=== PATIENT | male | born 1990 | race Caucasian/White ===

== ENCOUNTER 2017-11-28 12:18 | Emergency (ER) | payer OTHER ==
[2017-11-28 12:53] VITALS: RESP 18; TEMP 97.9
[2017-11-28] MEDS ORDERED: KETOROLAC 30 MG/ML 1 ML VIAL IM STA (13:03)
[2017-11-28] MEDS ORDERED: ORPHENADRINE 30 MG/ML 2 ML VIAL IM STA (13:03)
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
[2017-11-28 13:47] VITALS: BP 122/68; PULSE 62
== END 2017-11-28 13:45 | disposition home or self-care (01) ==
LOC: EC 12:18
DX: S16.1XXA Strain of muscle, fascia and tendon at neck level, initial encounter (principal); R40.2412 Glasgow coma scale score 13-15, at arrival to emergency department; Z53.29 Procedure and treatment not carried out because of patient's decision for other reasons; Y92.410 Unspecified street and highway as the place of occurrence of the external cause; V43.92XA Unspecified car occupant injured in collision with other type car in traffic accident, initial encounter
CPT/HCPCS: 72050; 99283; 96372 ×2; J2360; J1885

== ENCOUNTER 2020-11-21 19:52 | Emergency (ER) | payer OTHER ==
[2020-11-21 19:59] VITALS: RESP 16
[2020-11-21] MEDS ORDERED: KETOROLAC 15 MG/ML 1 ML VIAL IM STA (20:06)
[2020-11-21] MEDS ORDERED: ACETAMINOPHEN TAB 500 MG TAB PO STA (20:06)
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
--- NOTE | 2020-11-21 21:12 | XR ---
EXAMINATION TYPE: XR knee complete RT DATE OF EXAM: 11/21/2020 COMPARISON: NONE HISTORY: Pain TECHNIQUE: 3 views FINDINGS: I see no fracture nor dislocation. Joint spaces are normal. There is no sign of knee joint effusion. IMPRESSION: Negative right knee exam. No fracture.
[2020-11-21 21:54] VITALS: BP 116/77; PULSE 87; TEMP 98
== END 2020-11-21 21:53 | disposition home or self-care (01) ==
LOC: EC 19:52 → SUPCPDRO 19:52 → EC 21:53
DX: S83.91XA Sprain of unspecified site of right knee, initial encounter (principal); V09.9XXA Pedestrian injured in unspecified transport accident, initial encounter; Y93.02 Activity, running; Y92.480 Sidewalk as the place of occurrence of the external cause
CPT/HCPCS: 96372; 99284

== ENCOUNTER 2023-02-14 05:49 | Inpatient (IN) | payer OTHER ==
[2023-02-14] MEDS ORDERED: MORPHINE SULFATE 4 MG/ML SYRINGE IV STA (06:30)
--- NOTE | 2023-02-14 06:57 | XR ---
EXAMINATION TYPE: XR chest 2V DATE OF EXAM: 02/14/2023 COMPARISON: NONE HISTORY: Chest pain. TECHNIQUE: Frontal and lateral views of the chest are obtained. FINDINGS: There is no focal air space opacity, pleural effusion, or pneumothorax seen. The cardiac silhouette size is within normal limits. The osseous structures are intact. IMPRESSION: No acute cardiopulmonary process.
--- NOTE | 2023-02-14 07:21 | ED ---
Chest Pain HPI - General Chief Complaint: Chest Pain Stated Complaint: Chest pain, SOB Time Seen by Provider: 02/14/23 06:30 Source: patient Mode of arrival: ambulatory Limitations: no limitations - History of Present Illness Initial Comments: Patient is a 32-year-old male presents to the emergency room with complaints of chest pain which she awoke with this morning. He reports that he was discharged from [facility] on 02/13/2023 after a 48 hour stay for chest pain and which he workup diagnosed him with pulmonary emboli and DVT. He states in addition to his CAT scan and Doppler he also had an echocardiogram completed. He was placed on oral blood thinners which he believes is Eliquis and discharged home for follow-up in 3 months. He was not referred to any local specialists. He reports a family history of multiple persons with pulmonary emboli's and DVTs; he denies any recent trauma or surgery or other inciting event for DVT/PE. Prior to his recent diagnosis of PE and DVT has no significant past medical history and was not taking any medications on a regular basis. - Related Data Previous Rx's Medication Instructions Recorded Cyclobenzaprine [Flexeril] 5 mg PO TID #12 tablet 11/28/17 Ibuprofen [Motrin] 600 mg PO Q6H PRN #20 tab 11/28/17 Ibuprofen 600 mg PO Q6H #28 tab 11/21/20 Allergies Allergy/AdvReac Type Severity Reaction Status Date / Time No Known Allergies Allergy Verified 02/14/23 05:57 Review of Systems ROS Statement: Those systems with pertinent positive or pertinent negative responses have been documented in the HPI. ROS Other: All systems not noted in ROS Statement are negative. Past Medical History Past Medical History: Deep Vein Thrombosis (DVT), Pulmonary Embolus (PE) History of Any Multi-Drug Resistant Organisms: None Reported Past Surgical History: No Surgical Hx Reported Past Psychological History: No Psychological Hx Reported Smoking Status: Never smoker Past Alcohol Use History: Rare Past Drug Use History: None Reported General Exam Limitations: no limitations General appearance: alert, in no apparent distress Head exam: Present: atraumatic, normocephalic, normal inspection Eye exam: Present: normal appearance, PERRL, EOMI. Absent: scleral icterus, conjunctival injection, periorbital swelling ENT exam: Present: normal exam, mucous membranes moist Neck exam: Present: normal inspection, full ROM Respiratory exam: Present: normal lung sounds bilaterally. Absent: respiratory distress, wheezes, rales, rhonchi, stridor Cardiovascular Exam: Present: regular rate, normal rhythm, normal heart sounds. Absent: systolic murmur, diastolic murmur, rubs, gallop, clicks GI/Abdominal exam: Present: soft, normal bowel sounds. Absent: distended, tenderness, guarding, rebound, rigid Rectal exam: Present: deferred Extremities exam: Present: normal inspection. Absent: pedal edema, joint swelling Back exam: Present: normal inspection Neurological exam: Present: alert, oriented X3, CN II-XII intact Psychiatric exam: Present: normal affect, normal mood Skin exam: Present: warm, dry, intact, normal color. Absent: rash Course Vital Signs 02/14/23 05:55 Temperature 97.8 F Pulse Rate 90 Respiratory 18 Rate Blood Pressure 119/76 O2 Sat by Pulse 96 Oximetry Chest Pain MDM - MDM Was pt. sent in by a medical professional or institution (, PA, PROGRAM DEVELOPMENT SPECIALIST, urgent care, hospital, or correction...) When possible be specific @ -No Did you speak to anyone other than the patient for history (EMS, parent, family, police, friend...)? What history was obtained from this source @ -No Did you review nursing and triage notes (agree or disagree)? Why? @ -I reviewed and agree with nursing and triage notes Were old charts reviewed (outside hosp., previous admission, EMS record, old EKG, old radiological studies, urgent care reports/EKG's, correction records)? Report findings @ -Attempting to obtain records from [facility] from previous hospitalization 02/12/2020 to 02/13/2023, not available at this time. Differential Diagnosis (chest pain, altered mental status, abdominal pain women, abdominal pain men, vaginal bleeding, weakness, fever, dyspnea, syncope, headache, dizziness, GI bleed, back pain, seizure, CVA, palpatations, mental health, musculoskeletal)? @ -Differential Chest Pain: Stable Angina, Unstable Angina, STEMI, NSTEMI Aortic Dissection, Pneumothorax, Musculoskeletal, Esophageal Spasm GERD, Cholecystitis, Pancreatitis, Zoster, this is not meant to be an all-inclusive list. EKG interpreted by me (3pts min.). @ -Sinus rhythm, ventricular rate 72 bpm, OR interval 181 ms, QRS duration 93 ms, QT/QTC 347/370 ms, PRT axes 53, 48, 31 X-rays interpreted by me (1pt min.). @ -Chest x-ray 2 view: no consolidation, pleural effusion or pneumothorax. CT interpreted by me (1pt min.). @ -None done U/S interpreted by me (1pt. min.). @ -None done What testing was considered but not performed or refused? (CT, X-rays, U/S, labs)? Why? @ -CT angiogram of chest considered but deferred due to recently completed at [facility] up attempting to obtain records. What meds were considered but not given or refused? Why? @ -None Did you discuss the management of the patient with other professionals (professionals i.e. , PA, PROGRAM DEVELOPMENT SPECIALIST, lab, RT, psych nurse, social group worker, hardness tester, teacher, sergeant of officers, clinical case manager)? Give summary @ -No Was smoking cessation discussed for >3mins.? @ -No Was critical care preformed (if so, how long)? @ -No Were there social determinants of health that impacted care today? How? (Homelessness, low income, unemployed, alcoholism, drug addiction, transportation, low edu. Level, literacy, decrease access to med. care, longterm, rehab)? @ -No Was there de-escalation of care discussed even if they declined (Discuss DNR or withdrawal of care, Hospice)? DNR status @ -No What co-morbidities impacted this encounter? (DM, HTN, Smoking, COPD, CAD, Cancer, CVA, ARF, Chemo, Hep., AIDS, mental health diagnosis, sleep apnea, morbid obesity)? @ -Recent diagnosis of pulmonary emboli and multiple DVTs. Was patient admitted / discharged? Hospital course, mention meds given and route, prescriptions, significant lab abnormalities, going to OR and other pertinent info. @ -32-year-old male presenting to the emergency room with chest pain upon waking this morning which had resolved upon discharge from [facility] on 02/13/2023 in which she was diagnosed with pulmonary embolus and DVTs and placed on anticoagulation which she has been taking as prescribed. He was advised that he was to take the anticoagulants for 3 months and then returns to [facility] for repeat analysis; he had no inciting event to his thrombosis and has a family history of pulmonary emboli's and DVTs. Will attempt to obtain records from [place]. Will give morphine for pain start workup for chest pain with EKG, chest x-ray, CBC, CMP, coags, troponin, magnesium and hypercoagable workup. Will defer CT angiogram due to recent imaging and will defer anti-coagulation at this time given compliance to oral anticoagulant. EKG demonstrates sinus rhythm, chest x-ray shows no acute cardiopulmonary process. CBC demonstrates normal platelet count was slightly low hemoglobin at 12.8. CMP shows elevated chloride at 108 no other abnormalities on CMP including normal potassium level. Magnesium normal. Troponin negative. D-dimer elevated at 1.54; PT PTT and INR all normal. Remaining hypercoagulable workup pending. No indication for further workup at this time will continue to hold IV anticoagulation. Advised recommend patient for observation admission for further evaluation of chest pain, patient agreeable to this plan. Paged to [facility] services regarding recommendation of observation admission with consult to hematology advised; awaiting callback. Will admit patient to medical surgical unit in stable condition under EM services for further evaluation of chest pain likely secondary to underlying pulmonary emboli. Undiagnosed new problem with uncertain prognosis? @ -No Drug Therapy requiring intensive monitoring for toxicity (Heparin, Nitro, Insulin, Cardizem)? @ -No Were any procedures done? @ -No Diagnosis/symptom? @ -Chest pain Acute, or Chronic, or Acute on Chronic? @ -Acute Uncomplicated (without systemic symptoms) or Complicated (systemic symptoms)? @ -Complicated Side effects of treatment? @ -No Exacerbation, Progression, or Severe Exacerbation? @ -No Poses a threat to life or bodily function? How? (Chest pain, [place], [place], pneumonia, PE, COPD, DKA, ARF, appy, cholecystitis, CVA, Diverticulitis, Homicidal, Suicidal, threat to staff... and all critical care pts) @ -Yes, recently diagnosed pulmonary emboli with multiple DVTs at risk for right-sided heart strain and respiratory arrest. Case discussed with Dr. Armendariz. Disposition Clinical Impression: Chest pain, Pulmonary emboli Disposition: ADMITTED IP TO THIS [facility] Condition: Stable Referrals: Angelo Foster DO [Primary Care Provider] - 1-2 days Time of Disposition: 08:21
[2023-02-14 07:27] LABS: Basophils % (A) 0 %; Eosinophils # (A) 0.2 k/uL (0-0.7); Eosinophils % (A) 3 %; HCT 37.4 % (39.0-53.0); HGB 12.8 gm/dL (13.0-17.5); Lymphocytes # (A) 1.2 k/uL (1.0-4.8); Lymphocytes % (A) 17 %; MCH 27.4 pg (25.0-35.0); MCHC 34.4 g/dL (31.0-37.0); MCV 79.8 fL (80.0-100.0); Mean Platelet Volume 7.2; Monocytes # (A) 0.4 k/uL (0-1.0); Monocytes % (A) 6 %; Neutrophils # (A) 5.4 k/uL (1.3-7.7); Neutrophils % (A) 74 %; Platelet Count 237 k/uL (150-450); RBC 4.68 m/uL (4.30-5.90); RDW 12.8 % (11.5-15.5); WBC 7.4 k/uL (3.8-10.6)
[2023-02-14 07:39] LABS: ALT 21 U/L (4-49); AST 25 U/L (17-59); African American GFR (CKD) 90 (>60 ml/min/1.73 sqM); Albumin 3.7 g/dL (3.5-5.0); Alkaline Phosphatase 76 U/L (38-126); Anion Gap 8 mmol/L; Blood Urea Nitrogen 15 mg/dL (9-20); Carbon Dioxide 23 mmol/L (22-30); Chloride 108 mmol/L (98-107); Glucose 90 mg/dL (74-99); Non-African American GFR(CKD) 78 (>60 ml/min/1.73 sqM); Sodium 139 mmol/L (137-145); Total Bilirubin 0.5 mg/dL (0.2-1.3); Total Protein 6.5 g/dL (6.3-8.2)
[2023-02-14 07:40] LABS: Partial Thromboplastin Time 25.3 sec (22.0-30.0); Prothrombin Time 10.6 sec (9.0-12.0)
[2023-02-14] MEDS ORDERED: HYDROcodone/APAP 5-325MG 1 EACH TAB PO PRN (08:16)
[2023-02-14] MEDS ORDERED: NALOXONE 0.4 MG/ML 1 ML VIAL IV PRN (08:16)
[2023-02-14] MEDS ORDERED: MORPHINE SULFATE 4 MG/ML SYRINGE IV PRN (08:16)
[2023-02-14] MEDS ORDERED: HEPARIN SODIUM 1,000 UN/ML (10ML VL) IV ONE (08:39)
[2023-02-14] MEDS ORDERED: HEPARIN SODIUM 1,000 UN/ML (10ML VL) IV PRN (08:39)
[2023-02-14] MEDS ORDERED: HEPARIN SOD,PORK IN 0.45% NACL 25,000 UNIT in 0.45% NACL 1 250ML.BAG IV SCH (08:45)
[2023-02-14 09:08] LABS: Basophils % (A) 0 %; Eosinophils # (A) 0.1 k/uL (0-0.7); Eosinophils % (A) 2 %; HCT 38.6 % (39.0-53.0); HGB 12.7 gm/dL (13.0-17.5); Lymphocytes # (A) 1.2 k/uL (1.0-4.8); Lymphocytes % (A) 16 %; MCH 26.3 pg (25.0-35.0); MCHC 32.8 g/dL (31.0-37.0); MCV 80.4 fL (80.0-100.0); Mean Platelet Volume 6.8; Monocytes # (A) 0.4 k/uL (0-1.0); Monocytes % (A) 6 %; Neutrophils # (A) 5.5 k/uL (1.3-7.7); Neutrophils % (A) 75 %; Platelet Count 242 k/uL (150-450); RDW 12.7 % (11.5-15.5); WBC 7.3 k/uL (3.8-10.6)
[2023-02-14 09:24] LABS: Partial Thromboplastin Time 25.3 sec (22.0-30.0); Prothrombin Time 10.6 sec (9.0-12.0)
[2023-02-14 09:44] VITALS: RESP 16
[2023-02-14] MEDS ORDERED: APIXABAN 5 MG TAB PO SCH (12:15)
--- NOTE | 2023-02-14 13:49 | P.HPIM ---
History of Present Illness H&P Date: 02/14/23 History of present illness; patient 32-year-old gentleman with past medical hist ory for recent diagnosis of PE and DVT who presented to The ER because of chest pain. Patient stated he was all right this morning when he was awakened from sleep with chest pain that was central in location. Chest pain was pressure in nature, nonradiating, no aggravating or relieving factors associated with this chest pain. There was no complain of Shortness of breath. [facility] where was diagnosed with pulmonary emboli and DVT. He states in addition to his CAT scan and Doppler he also had an echocardiogram completed. He was placed on Eliquis and discharged home for follow-up Initial lab work done in the ER showed WBC 7.4, hemoglobin 12.8, platelet count 237, sodium 139, potassium 4, BUN 50, creatinine 1.23, troponin 0.012 Patient was admitted to medicine service REVIEW OF SYSTEMS: CONSTITUTIONAL: No fever, no malaise, no fatigue. HEENT: No recent visual problems or hearing problems. Denied any sore throat. CARDIOVASCULAR: As mentioned in HPI PULMONARY: As mentioned in HPI GASTROINTESTINAL: No diarrhea, no nausea, no vomiting, no abdominal pain. NEUROLOGICAL: No headaches, no weakness, no numbness. HEMATOLOGICAL: Denies any bleeding or petechiae. GENITOURINARY: Denies any burning micturition, frequency, or urgency. MUSCULOSKELETAL/RHEUMATOLOGICAL: Denies any joint pain, swelling, or any muscle pain. ENDOCRINE: Denies any polyuria or polydipsia. The rest of the 14-point review of systems is negative. PHYSICAL EXAMINATION: GENERAL: The patient is alert and oriented x3, not in any acute distress. Well developed, well nourished. HEENT: Pupils are round and equally reacting to light. EOMI. No scleral icterus. No conjunctival pallor. Normocephalic, atraumatic. No pharyngeal erythema. No thyromegaly. CARDIOVASCULAR: S1 and S2 present. No murmurs, rubs, or gallops. PULMONARY: Chest is clear to auscultation, no wheezing or crackles. ABDOMEN: Soft, nontender, nondistended, normoactive bowel sounds. No palpable organomegaly. MUSCULOSKELETAL: No joint swelling or deformity. EXTREMITIES: No cyanosis, clubbing, or pedal edema. NEUROLOGICAL: Gross neurological examination did not reveal any focal deficits. SKIN: No rashes. Assessment and plan Chest pain Recent Diagnosis of PE Recent diagnosis of DVT Monitor vital signs Monitor CBC Monitor CMP Continue telemetry monitoring Trend troponin Continue heparin pharmacy dose Consult cardiology Consult hematology oncology Labs and medication were reviewed.. Continue same treatment. Continue with symptomatic treatment. Resume home medication. Monitor labs and vitals. DVT and GI prophylaxis. Further recommendations as per clinical course of the patient Dictation was produced using [employer] dictation software. please excuse any grammatical, word or spelling errors. Past Medical History Past Medical History: Deep Vein Thrombosis (DVT), Pulmonary Embolus (PE) History of Any Multi-Drug Resistant Organisms: None Reported Past Surgical History: No Surgical Hx Reported Past Psychological History: No Psychological Hx Reported Smoking Status: Never smoker Past Alcohol Use History: Rare Past Drug Use History: None Reported - Past Family History Mother Additional Family Medical History / Comment(s): blood clot, both maternal grandparents had blood clots Medications and Allergies Home Medications Medication Instructions Recorded Confirmed Type Apixaban [Eliquis Starter Pack See Taper PO DIRECTED 02/14/23 02/14/23 History (for VTE)] Sertraline [Zoloft] 100 mg PO DAILY 02/14/23 02/14/23 History Allergies Allergy/AdvReac Type Severity Reaction Status Date / Time No Known Allergies Allergy Verified 02/14/23 05:57 Physical Exam Vitals: Vital Signs Temp Pulse Resp BP Pulse Ox 02/14/23 09:00 64 16 105/64 98 02/14/23 05:55 97.8 F 90 18 119/76 96 Intake and Output 02/13/23 02/14/23 02/14/23 22:59 06:59 14:59 Other: Weight 117.934 kg Results CBC & Chem 7: 02/14/23 08:50 02/14/23 06:39 Labs: Abnormal Lab Results - Last 24 Hours (Table) 02/14/23 02/14/23 02/14/23 Range/Units 06:39 06:39 06:39 Hgb 12.8 L (13.0-17.5) gm/dL Hct 37.4 L (39.0-53.0) % MCV 79.8 L (80.0-100.0) fL Fibrinogen 502 H (200-500) mg/dL D-Dimer 1.54 H (<0.60) mg/L FEU Chloride 108 H (98-107) mmol/L 02/14/23 Range/Units 08:50 Hgb 12.7 L (13.0-17.5) gm/dL Hct 38.6 L (39.0-53.0) % MCV (80.0-100.0) fL Fibrinogen (200-500) mg/dL D-Dimer (<0.60) mg/L FEU Chloride (98-107) mmol/L
[2023-02-14 14:08] VITALS: BP 136/65; PULSE 86; TEMP 98
--- NOTE | 2023-02-14 14:29 | P.CRDCN ---
History of Present Illness Consult date: 02/14/23 Consult reason: chest pain History of present illness: History of present illness: This is a 32-year-old male gives history of developing chest pain on the left side of his chest week ago and went to [facility] in [place] near where he was working at that time and was diagnosed with bilateral PE and left lower extremity DVT. Patient initially was on heparin and transitioned to eliquis. His echocardiogram did not show any abnormality in he was determined that he was not a candidate for thrombectomy. He had a full workup by tianna matology at that time. He does give history of family having blood clots in his mom and maternal grandmother. He states he has had ongoing chest pain and he was laying last night on his right side the discomfort woke him up and he was having difficulty breathing and he could taste blood in his mouth. He denies having any lower extremity edema. No pain in his legs. No trauma to his legs. He states he has not recently been active as he has just finished college degree. He denies having any palpitations. No dizziness or syncopal episodes. He states the pain when he has it is sharp. He states he is a lifelong nonsmoker, no caffeine intake and he has quit alcohol 2 years ago. No tobacco use. Patient was started on eliquis and has taken 1 day of regime. Patient is seen today in the emergency center waiting for a bed on the cardiac stepdown unit. He has been started on heparin drip and eliquis placed on hold. EKG sinus rhythm with no acute changes Chest x-ray:No acute cardiopulmonary process. WBC 7.3, hemoglobin 12.7, platelet count 242. INR 1. D-dimer 1.54. Troponin negative 2. Electrolytes otherwise and renal function, liver function tests are normal. Home cardiac medications:Eliquis starter pack for the [facility]AS[facility] Review Of Systems: At the time of my evaluation: Constitutional: No fever, no chills. No weakness, fatigue or lethargy. EENT: No headache. No dizziness. Lungs: No shortness of breath, cough, no sputum production. No wheezing. Cardiovascular: reports t pain, no lower extremity edema. No palpitations. No paroxysmal nocturnal dyspnea. No orthopnea. No lightheadedness or dizziness. No syncopal episodes. Abdominal: No nausea, vomiting. No bloody or tarry stools. Musculoskeletal: No myalgias. No muscle weakness, no frequent falls. Integumentary: No wounds. No rash. No unusual bruising. Neurologic: No aphasia. No facial droop. No change in mentation. Physical examination: Gen: This is a 32-year-old male resting in the ER stretcher and appears to be comfortable and in no acute distress. VS: reviewed HEENT: Head is atraumatic, normocephalic. Pupils equal, round. Sclerae is anicteric. NECK: Supple. No JVD. . LUNGS: Clear to auscultation. No wheezes or rhonchi. No intercostal retractions. HEART: Regular rate and rhythm. No murmur. ABDOMEN: Soft No tenderness. EXTREMITIES: No pedal edema. No calf tenderness. NEUROLOGICAL: Patient is awake, alert and oriented x3. Assessment: Bilateral pulmonary embolism and left lower extremity DVT Chest pain secondary to pulmonary embolism Plan: Discontinue heparin drip and resume patient on eliquis No need to repeat echocardiogram as this was done at patient is cleared for discharge may follow-up as needed. Thank you kindly for this consultation. Nurse practitioner note has been reviewed, I agree with documented findings and plan of care. Patient was seen and examined. Past Medical History Past Medical History: Deep Vein Thrombosis (DVT), Pulmonary Embolus (PE) History of Any Multi-Drug Resistant Organisms: None Reported Past Surgical History: No Surgical Hx Reported Past Psychological History: No Psychological Hx Reported Smoking Status: Never smoker Past Alcohol Use History: Rare Past Drug Use History: None Reported - Past Family History Mother Additional Family Medical History / Comment(s): blood clot, both maternal grandparents had blood clots Medications and Allergies Home Medications Medication Instructions Recorded Confirmed Type Apixaban [Eliquis Starter Pack See Taper PO DIRECTED 02/14/23 02/14/23 History (for VTE)] Sertraline [Zoloft] 100 mg PO DAILY 02/14/23 02/14/23 History Allergies Allergy/AdvReac Type Severity Reaction Status Date / Time No Known Allergies Allergy Verified 02/14/23 05:57 Physical Exam Vitals: Vital Signs Temp Pulse Resp BP Pulse Ox 02/14/23 14:06 98 F 86 16 136/65 95 02/14/23 09:00 64 16 105/64 98 02/14/23 05:55 97.8 F 90 18 119/76 96 Intake and Output 02/13/23 02/14/23 02/14/23 22:59 06:59 14:59 Other: Weight 117.934 kg Results 02/14/23 08:50 02/14/23 06:39 Cardiac Enzymes 02/14/23 02/14/23 02/14/23 Range/Units 06:39 06:39 08:50 AST 25 (17-59) U/L Troponin I <0.012 <0.012 (0.000-0.034) ng/mL Coagulation 02/14/23 02/14/23 Range/Units 06:39 08:50 PT 10.6 10.6 (9.0-12.0) sec APTT 25.3 25.3 (22.0-30.0) sec CBC 02/14/23 02/14/23 Range/Units 06:39 08:50 WBC 7.4 7.3 (3.8-10.6) k/uL RBC 4.68 4.80 (4.30-5.90) m/uL Hgb 12.8 L 12.7 L (13.0-17.5) gm/dL Hct 37.4 L 38.6 L (39.0-53.0) % Plt Count 237 242 (150-450) k/uL Comprehensive Metabolic Panel 02/14/23 Range/Units 06:39 Sodium 139 (137-145) mmol/L Potassium 4.0 (3.5-5.1) mmol/L Chloride 108 H (98-107) mmol/L Carbon Dioxide 23 (22-30) mmol/L BUN 15 (9-20) mg/dL Creatinine 1.23 (0.66-1.25) mg/dL Glucose 90 (74-99) mg/dL Calcium 9.0 (8.4-10.2) mg/dL AST 25 (17-59) U/L ALT 21 (4-49) U/L Alkaline Phosphatase 76 (38-126) U/L Total Protein 6.5 (6.3-8.2) g/dL Albumin 3.7 (3.5-5.0) g/dL Current Medications Generic Name Dose Route Start Last Admin Trade Name Freq PRN Reason Stop Dose Admin Hydrocodone Bitart/Acetaminophen 1 each 02/14/23 08:16 Hydrocodone/Apap 5-325mg 1 Each Tab PO Q4HR PRN Moderate Pain (Scale 4 to 6) Apixaban 10 mg 02/14/23 12:15 Apixaban 5 Mg Tab PO 03/16/23 12:14 BID TOM Taper Morphine Sulfate 4 mg 02/14/23 08:16 Morphine Sulfate 4 Mg/Ml Syringe IV Q4HR PRN Severe Pain (Scale 7 to 10) Naloxone HCl 0.2 mg 02/14/23 08:16 Naloxone 0.4 Mg/Ml 1 Ml Vial IV Q2M PRN Opioid Reversal Intake and Output 02/13/23 02/14/23 02/14/23 22:59 06:59 14:59 Other: Weight 117.934 kg 02/14/23 08:50 02/14/23 06:39
--- NOTE | 2023-02-14 15:10 | P.CONS ---
History of Present Illness - Reason for Consult Consult date: 02/14/23 PE/DVT Requesting physician: Carlita Branham - Chief Complaint DVT/PE - History of Present Illness Mr Kirkpatrick is a 32-year-old male we've been asked to see because of recent diagnosis of bilateral lower extremity DVT and PE, coming to ER with lt shoulder pain, same as when he was diagnosed earlier this week. Reviewed patient history back to December. That is when the patient first noted a dry cough, runny nose, dry cough and occ hemoptysis. 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 He would stay there for the week and then return home. Patient was working afternoons last week. Friday he started having symptoms of left shoulder pain, aching, persistent, went to [facility] to be evaluated, per patient the cardiac workup was negative. He had a CT of the chest showing pulmonary embolism, baseline Dopplers of the bilateral lower extremities were positive-he believes both legs. He was placed on a heparin drip. He states that his left shoulder/chest pains were much better. He was sent home with pramod for anticoagulation. Patient states pain in the left shoulder woke him up, pain similar to what he had previously so, he came to [facility] for evaluation. Patient h as been placed on a heparin drip, received a shot of morphine. He reports that the left shoulder pain is gone. He reports no other symptoms. He denied any swelling or pain in the lower extremities. No personal history of blood clots. He states that his mother and his maternal grandmother and grandfather had blood clots. He believes 2 of his grandparents had cancers, they at very old age . Denies any surgeries, no other significant medical history. Review of Systems 10 point ROS is neg except as stated in HPI Past Medical History Past Medical History: Deep Vein Thrombosis (DVT), Pulmonary Embolus (PE) History of Any Multi-Drug Resistant Organisms: None Reported Past Surgical History: No Surgical Hx Reported Past Psychological History: No Psychological Hx Reported Smoking Status: Never smoker Past Alcohol Use History: Rare Past Drug Use History: None Reported - Past Family History Mother Additional Family Medical History / Comment(s): blood clot, both maternal grandparents had blood clots Medications and Allergies Home Medications Medication Instructions Recorded Confirmed Type Apixaban [Eliquis Starter Pack See Taper PO DIRECTED 02/14/23 02/14/23 History (for VTE)] Sertraline [Zoloft] 100 mg PO DAILY 02/14/23 02/14/23 History Allergies Allergy/AdvReac Type Severity Reaction Status Date / Time No Known Allergies Allergy Verified 02/14/23 05:57 Physical Exam Vitals: Vital Signs Temp Pulse Resp BP Pulse Ox 02/14/23 05:55 97.8 F 90 18 119/76 96 Intake and Output 02/13/23 02/14/23 02/14/23 22:59 06:59 14:59 Other: Weight 117.934 kg - Constitutional General appearance: average body habitus, cooperative, no acute distress - EENT Eyes: anicteric sclerae, EOMI ENT: hearing grossly normal, normal oropharynx - Neck Neck: no lymphadenopathy - Respiratory Respiratory: bilateral: CTA - Cardiovascular Rhythm: regular Heart sounds: normal: S1, S2 Abnormal Heart Sounds: no systolic murmur, no diastolic murmur, no rub, no S3 G allop, no S4 Gallop, no click, no other leg Peripheral Edema: bilateral: None - Gastrointestinal General gastrointestinal: no absent bowel sounds, no decreased bowel sounds, no distended, no hepatomegaly, no hyperactive bowel sounds, normal bowel sounds, no organomegaly, no rigid, no scaphoid, soft, no splenomegaly, no tenderness, no umbilical hernia, no ventral hernia - Integumentary Integumentary: normal - Neurologic Neurologic: CNII-XII intact - Musculoskeletal Musculoskeletal: strength equal bilaterally - Psychiatric Psychiatric: A&O x's 3, appropriate affect, intact judgment & insight Results CBC & Chem 7: 02/14/23 08:50 02/14/23 06:39 Labs: Abnormal Lab Results - Last 24 Hours (Table) 02/14/23 02/14/23 02/14/23 Range/Units 06:39 06:39 06:39 Hgb 12.8 L (13.0-17.5) gm/dL Hct 37.4 L (39.0-53.0) % MCV 79.8 L (80.0-100.0) fL Fibrinogen 502 H (200-500) mg/dL D-Dimer 1.54 H (<0.60) mg/L FEU Chloride 108 H (98-107) mmol/L Chest x-ray: report reviewed Assessment and Plan (1) Pulmonary emboli Current Visit: Yes Status: Acute Priority: High Code(s): I26.99 - OTHER PULMONARY EMBOLISM WITHOUT ACUTE COR PULMONALE SNOMED Code(s): 54789667 (2) Deep vein thrombophlebitis of leg Current Visit: Yes Status: Acute Priority: High Code(s): I80.209 - PHLBTS AND THOMBOPHLB OF UNSP DEEP VESSELS OF UNSP LOW EXTRM SNOMED Code(s): 96181524 Plan: DVT/PE -Based on patient's history most likely this is provoked DVT/PE -Based on patient's family history hypercoagulable workup is recommended ,and completed. Appt has been made for pt for results -Anticoagulation recommendations-continue eliquis loading dose then transition over to 5 mg twice a day -Duration of anticoagulation currently recommended 3 months. Chest shoulder discomfort -Most likely pleuritic chest type pain secondary to inflammation from recent PE. -Recommended Tylenol and ibuprofen for discomfort in the future Doctor attests: I performed a history and physical examination of this patient, developed impression and plan of care. Discussed with dictator. I agree with dictators note, documented as a scribe.
[2023-02-15 01:38] LABS: Cardiolipin Ab IgG Interp Negative (Negative); Cardiolipin Ab IgM Interp Negative (Negative); Cardiolipin IgA Antibody <2.0 U/mL; Cardiolipin IgM Antibody <1.5 U/mL
[2023-02-18 14:23] LABS: APTT >180 Sec(s) (<43); APTT 1:1 Mix >180 Sec(s) (<43); DRVVT 1:1 Mix 69 Sec(s) (<44); DRVVT Confirmation Positive (Negative); Dilute Russell Viper Venom 139 Sec(s) (<44); Hexagonal Phase Neutralization Positive (Negative)
--- NOTE | 2023-02-18 14:49 | P.DS ---
Providers Date of admission: 02/14/23 08:11 Expected date of discharge: 02/18/23 Attending physician: Hyun Cotton Consults: 02/14/23 08:16 Consult Physician Stat Consulting Provider: Rodolfo Padron Consult Reason/Comments: Pulmonary emboli Do you want consulting provider notified?: Yes 02/14/23 08:40 Consult Physician Stat Consulting Provider: Sunny Vera Consult Reason/Comments: chest pain Do you want consulting provider notified?: Yes Primary care physician: Angelo Foster Hospital Course: Discharge diagnoses; Chest pain Recent Diagnosis of PE Recent diagnosis of DVT Hospital course; patient 32-year-old gentleman with past medical history for recent diagnosis of PE and DVT who presented to The ER because of chest pain. Patient stated he was all right this morning when he was awakened from sleep with chest pain that was central in location. Chest pain was pressure in nature, nonradiating, no aggravating or relieving factors associated with this chest pain. There was no complain of Shortness of breath. Patient was discharged from [facility] on 02/13/2023 where was diagnosed with pulmonary emboli and DVT. He states in addition to his CAT scan and Doppler he also had an echocardiogram completed. He was placed on Eliquis and discharged home for follow-up Initial lab work done in the ER showed WBC 7.4, hemoglobin 12.8, platelet count 237, sodium 139, potassium 4, BUN 50, creatinine 1.23, troponin 0.012 Patient was admitted to medicine service Patient was evaluated by cardiology and hematology oncology. Patient's troponins remained flat, cardiology cleared the patient for discharge. Hematology oncology recommended keeping patient on Eliquis and following up outpatient. PHYSICAL EXAMINATION: GENERAL: The patient is alert and oriented x3, not in any acute distress. Well developed, well nourished. HEENT: Pupils are round and equally reacting to light. EOMI. No scleral icterus. No conjunctival pallor. Normocephalic, atraumatic. No pharyngeal erythema. No thyromegaly. CARDIOVASCULAR: S1 and S2 present. No murmurs, rubs, or gallops. PULMONARY: Chest is clear to auscultation, no wheezing or crackles. ABDOMEN: Soft, nontender, nondistended, normoactive bowel sounds. No palpable organomegaly. MUSCULOSKELETAL: No joint swelling or deformity. EXTREMITIES: No cyanosis, clubbing, or pedal edema. NEUROLOGICAL: Gross neurological examination did not reveal any focal deficits. SKIN: No rashes. Dictation was produced using [employer] dictation software. please excuse any grammatical, word or spelling errors. Patient Condition at Discharge: Stable Plan - Discharge Summary New Discharge Prescriptions: Continue Sertraline [Zoloft] 100 mg PO DAILY Apixaban [Eliquis Starter Pack (for VTE)] See Taper PO DIRECTED Discharge Medication List Apixaban [Eliquis Starter Pack (for VTE)] See Taper PO DIRECTED 02/14/23 [History] Sertraline [Zoloft] 100 mg PO DAILY 02/14/23 [History] Follow up Appointment(s)/Referral(s): Alva Padron MD [STAFF PHYSICIAN] - 4 Weeks Angelo Foster DO [Primary Care Provider] - 1-2 days Patient Instructions/Handouts: Chest Pain (DC) Discharge Disposition: HOME SELF-CARE
[2023-02-19 11:55] LABS: Anti-Thrombin III Activity 115 % (79-109)
[2023-02-19 12:01] LABS: Protein C (Activity) 88 % (71-138)
== END 2023-02-14 14:00 | disposition home or self-care (01) | DRG 134 ==
LOC: EC 05:49 → 3SCARD 08:11
PROVIDERS: ADMIT Hospitalist; ATTEND Hospitalist
DX: I26.99 Other pulmonary embolism without acute cor pulmonale (principal); I82.402 Acute embolism and thrombosis of unspecified deep veins of left lower extremity; I10 Essential (primary) hypertension; Z79.899 Other long term (current) drug therapy; Z86.711 Personal history of pulmonary embolism; Z86.718 Personal history of other venous thrombosis and embolism; Z79.01 Long term (current) use of anticoagulants
CPT/HCPCS: 36415; 71046; 80053; 81240; 81241; 81291; 83735; 84484; 85025; 85300; 85303; 85306; 85379; 85384; 85610; 85613; 85730; 86038; 86147; 93005; 96365; 96366; 96375; 99285